=== PATIENT | female | born 1970 | race Caucasian/White ===

== ENCOUNTER 2019-10-29 09:02 | Outpatient (CLI) | payer OTHER, SELFPAY ==
--- NOTE | ~2019-10-29 | MR_ITS ---
EXAMINATION: MR knee LT wo con DATE: 10/29/2019 09:58 INDICATION: Lateral left knee burning pain TECHNIQUE: Magnetic resonance imaging (MRI) of the left knee was performed without intravenous contra st. Sequences included coronal PD-weighted FSE, coronal PD-weighted FS FSE, sagittal T2-weighted FSE , sagittal PD-weighted FS FSE and axial PD weighted fat saturated FSE. COMPARISON: Left knee radiographs dated 08/31/2017 FINDINGS: Medial compartment: Longitudinal tear in the peripheral third of the body and medial side of the posterior horn which beg ins with vertical orientation at the body and transitioning to an oblique configuration at the chief executive officer ior horn. Shallow chondral fissure along the articular portion of the intercondylar eminence. Articul ar cartilage is otherwise normal. Lateral compartment: Lateral meniscus is normal. Small region of deep chondral fissuring without degenerative subchondral changes at the posterior aspect of the lateral tibial plateau at the level of the free edge of the po sterior horn of the meniscus. Patellofemoral compartment: Deep chondral fissuring with subtle underlying cortical defect and subarticular edema at the central aspect of the medial trochlea. Remainder of the patellofemoral cartilage is normal. Ligaments and tendons: Anterior and posterior cruciate ligaments are normal. The medial collateral ligament and fibular mone ateral ligament complex are normal. The extensor mechanism is normal. The visualized medial and later al hamstring tendons as well as the iliotibial band are normal. Fluid: Physiologic amount of fluid in the joint space. No loose osteochondral bodies identified. Osseous/other: Bone alignment is normal. No fracture or pathologic marrow replacing process. IMPRESSION: 1. Longitudinal tear at the body and posterior horn of the medial meniscus. 2. Mild tricompartmental osteoarthritis with regions of moderate grade chondromalacia in the medial a nd lateral tibial plateaus and high-grade chondral malacia at the medial trochlea. Reviewed, dictated and finalized at location B. IMPRESSION: 1. Longitudinal tear at the body and posterior horn of the medial meniscus. 2. Mild tricompartmental osteoarthritis with regions of moderate grade chondrom alacia in the medial and lateral tibial plateaus and high-grade chondral malaci a at the medial trochlea.
== END 2019-10-29 09:03 ==
PROVIDERS: PCP Family Medicine; Visit Provider Orthopaedic Surgery
DX: M25.562 Pain in left knee (principal); G89.29 Other chronic pain; S83.242A Other tear of medial meniscus, current injury, left knee, initial encounter; M17.12 Unilateral primary osteoarthritis, left knee; M94.262 Chondromalacia, left knee
CPT/HCPCS: 73721

== ENCOUNTER 2020-01-10 08:01 | Outpatient (CLI) | payer OTHER, SELFPAY ==
--- NOTE | ~2020-01-10 | DEXA_ITS ---
Bone Density Report Name: Lyly Rajput Age: 49 Sex: Female Ethnicity: White Date of : 1970 Indication: history of glucocorticoids; asthma or emphysema; Referring Provider: PHYSICIAN NOT ON STAFF Study: Bone densitometry was performed. Exam Date: January 10, 2020 Accession number: [id number] Bone Density: Region BMD T-score Z-score Classification AP Spine (L1-L4) 0.819 -2.1 -1.4 Osteopenia Femoral Neck (Left) 0.652 -1.8 -1.1 Osteopenia Total Hip (Left) 0.770 -1.4 -1.0 Osteopenia Total Hip Bilateral Avg 0.772 -1.4 -1.0 Osteopenia Femoral Neck (Right) 0.651 -1.8 -1.1 Osteopenia Total Hip (Right) 0.773 -1.4 -1.0 Osteopenia World Health Organization criteria for BMD impression classify patients as: Normal (T-score at or above -1.0), Osteopenia (T-score between -1.0 and -2.5), or Osteoporosis (T-score at or below -2.5). 10-year Fracture Risk: FRAX not reported because: Premenopausal woman Clinical Information Provided by Patient: Has taken Glucocorticoids Has the following medical conditions: Asthma or Emphysema Patient maximum height was 64 No regular weight bearing exercise Onset of menses at age 13 Premenopausal Number of children 2 Missed period for more than 6 months in a row Impression: The patient's bone mass is within expected range for age, gender and ethnicity. The patient has risk factors, including: history of glucocorticoid therapy. Discussion: BONE DENSITY IS WITHIN EXPECTED LIMITS FOR AGE, SEX AND RACE. Bone density is within expected limits for age, sex and race at all sites measured. The patient should follow a healthful lifestyle (good nutrition with adequate calcium and vitamin D, and appropriate weight-bearing exercise). Follow-Up: Consider repeating this study in 2 to 3 years to reassess this patient's status, or sooner if there is some new clinical indication. Reported by: [facility] on 01/10/2020 8:32:00 AM. Reviewed, dictated and finalized at location [facility]
== END 2020-01-10 08:02 | disposition home or self-care (01) ==
PROVIDERS: PCP Family Medicine
DX: K74.3 Primary biliary cirrhosis (principal); Z79.899 Other long term (current) drug therapy; K21.9 Gastro-esophageal reflux disease without esophagitis; M85.88 Other specified disorders of bone density and structure, other site; M85.852 Other specified disorders of bone density and structure, left thigh; M85.851 Other specified disorders of bone density and structure, right thigh
CPT/HCPCS: 77080

== ENCOUNTER → 2020-10-02 15:22 | Outpatient (CLI) | payer OTHER, SELFPAY ==
--- NOTE | ~2020-10-02 | CT_ITS ---
EXAMINATION: CT abdomen pelvis w con DATE: 10/02/2020 15:47 INDICATION: Left upper quadrant abdominal pain, nausea. TECHNIQUE: Computed tomography (CT) of the abdomen and pelvis was performed with 100 cc Omnipaque 350 intravenous contrast. Automated exposure control and iterative reconstruction technique were employe d. Exam dose: 747.12 mGy-cm total exam DLP. COMPARISON: 08/31/2017 CT abdomen pelvis FINDINGS: The lung bases are clear. Normal heart size. No pericardial or pleural effusion. Status post cholecystectomy. No bile duct or pancreatic duct dilatation. No hepatic, splenic, pancrea tic, and adrenal or renal space-occupying mass lesion is detected. No urinary tract calculus or hydroureteronephrosis. The urinary bladder is unremarkable. An IUD withi n the uterus. The uterus and adnexal areas are otherwise unremarkable. Normal caliber of the abdominal aorta. No intraperitoneal or retroperitoneal or pelvic mass lesion or lymphadenopathy or ascites. Small sliding hiatal hernia. No evidence of appendicitis. No bowel obstruction, bowel wall thickening , pneumatosis or intraperitoneal free air. Small fat-containing umbilical hernia. Included skeletal structures are unremarkable. IMPRESSION: No acute finding or significant change since 1970 Reviewed, dictated and finalized at Location A. Reviewed, dictated and finalized at location B.
== END ==
PROVIDERS: PCP Family Medicine; Visit Provider Family Medicine
DX: R10.12 Left upper quadrant pain (principal)
CPT/HCPCS: 74177; Q9967

== ENCOUNTER → 2021-02-15 10:30 | Outpatient (CLI) | payer OTHER, SELFPAY ==
--- NOTE | ~2021-02-15 | XR_ITS ---
EXAMINATION: XR knee LT 2V EXAM DATE: 02/15/2021 11:19 INDICATION: Pain in left leg. TECHNIQUE: Frontal and lateral projections of the left knee. Correlation is made to left tibia fibul a exam same date. FINDINGS: No left knee joint effusion. Mild medial tibiofemoral compartment primary osteoarthritis. There are no acute fractures or dislocations identified. There is no subcutaneous gas. The soft tis temo is unremarkable. There are no radiopaque foreign bodies. IMPRESSION: Mild left medial tibiofemoral compartment osteoarthritis. Reviewed, dictated and finalized at location B. 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
--- NOTE | ~2021-02-15 | XR_ITS ---
EXAMINATION: XR tibia fibula LT 2V EXAM DATE: 02/15/2021 11:18 INDICATION: Pain in left leg. TECHNIQUE: Left tibia/fibula frontal and lateral projections obtained and reviewed. There is no prio r study for comparison. FINDINGS: Left tibial and fibular shafts unremarkable. No periosteal reaction or band of sclerosis to suggest subacute stress fracture. There are no acute fractures or dislocations identified. There is no subcutaneous gas. The soft tissue is unremarkable. There are no radiopaque foreign bodies. IMPRESSION: 1. Unremarkable XR tibia fibula LT 2V exam. Reviewed, dictated and finalized at location B. 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
== END ==
PROVIDERS: PCP Family Medicine
DX: M17.12 Unilateral primary osteoarthritis, left knee (principal)
CPT/HCPCS: 73560; 73590

== ENCOUNTER → 2021-02-28 09:35 | Outpatient (CLI) | payer OTHER, SELFPAY ==
--- NOTE | ~2021-02-28 | XR_ITS ---
EXAMINATION: XR chest 2V DATE: 02/28/2021 10:05 INDICATION: Moderate persistent asthma. TECHNIQUE: Frontal and lateral views of the chest were obtained. COMPARISON: CT abdomen and pelvis 10/02/2020 FINDINGS: The chest demonstrates clear lungs without pneumonia, pleural effusion, or pneumothorax. Th e heart size is normal. Surgical clips in the right upper quadrant are likely from cholecystectomy. IMPRESSION: 1. No acute cardiopulmonary disease. Reviewed, dictated and finalized at location B. 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
== END ==
DX: J45.40 Moderate persistent asthma, uncomplicated (principal)
CPT/HCPCS: 71046

== ENCOUNTER → 2021-09-26 15:47 | Outpatient (CLI) | payer OTHER, SELFPAY ==
--- NOTE | ~2021-09-26 | XR_ITS ---
XR lumbar spine 6V w bending 09/26/2021 16:45 Indication: Cervicalgia and low back pain Procedure: 7 views of the lumbar spine including flexion/extension Comparison: No prior studies for comparison. Findings: Lumbar vertebral body heights are maintained. No significant disc narrowing. No significant alteration of alignment with flexion/extension. There is facet hypertrophy at L5-S1. No spondylolist hesis. There is an IUD in the pelvis. Impression: 1: Mild lumbar spondylosis. Reviewed, dictated and finalized at location A. Impression: 1: Mild lumbar spondylosis.
--- NOTE | ~2021-09-26 | XR_ITS ---
XR cervical spine min 6V DATE: 09/26/2021 16:45 INDICATION: Neck pain TECHNIQUE: Standing AP, lateral, open-mouth and flexion and extension lateral views COMPARISON: None FINDINGS: There is straightening of the cervical spine. C1 and C2 are normally aligned and the odontoid process is intact. No fracture or dislocation or lock ed facet or prevertebral soft tissue swelling is detected. There is approximately 1 mm anterolisthesis at C3-4 in neutral, increasing to approximately 2 mm in f lexion, reduced in extension. There is approximately 1 mm anterolisthesis at C4-5 in flexion, with approximately 1 mm retrolisthesi s at C4-5 and extension. There is approximately 1-1.5 mm retrolisthesis at C5-C6 in neutral and extension, reduced in flexion. Moderately prominent degenerative disc disease C5-6 and C6-7, with prominent posterior spurring at C5 -6. Uncovertebral joint spurring is noted, particularly at C5-6 and C6-7. IMPRESSION: Cervical spondylosis Reviewed, dictated and finalized at location B. IMPRESSION: Cervical spondylosis
== END ==
PROVIDERS: PCP Family Medicine; Visit Provider Family Medicine
DX: M47.896 Other spondylosis, lumbar region (principal); M47.892 Other spondylosis, cervical region
CPT/HCPCS: 72052; 72114

== ENCOUNTER → 2021-11-27 14:47 | Outpatient (CLI) | payer OTHER, SELFPAY ==
--- NOTE | ~2021-11-27 | DEXA_ITS ---
Bone Density Report Name: MARILOU COX Age: 50 Sex: Female Ethnicity: White Date of : 1970 Indication: osteopenia; height loss; asthma or emphysema; Referring Provider: WENDY CORDERO Study: Bone densitometry was performed. Exam Date: November 27, 2021 Accession number: [id number] Bone Density: Region BMD T-score Z-score Classification AP Spine (L1-L4) 0.797 -2.3 -1.5 Osteopenia Femoral Neck (Left) 0.661 -1.7 -0.9 Osteopenia Total Hip (Left) 0.780 -1.3 -0.8 Osteopenia Femoral Neck (Right) 0.631 -2.0 -1.2 Osteopenia Total Hip (Right) 0.720 -1.8 -1.3 Osteopenia Total Hip Mean 0.750 -1.6 -1.1 Osteopenia World Health Organization criteria for BMD impression classify patients as: Normal (T-score at or above -1.0), Osteopenia (T-score between -1.0 and -2.5), or Osteoporosis (T-score at or below -2.5). 10-year Fracture Risk(1): Major Osteoporotic Fracture 5.2% Hip Fracture 0.6% Reported Risk Factors: [place] (), Neck BMD=0.631, BMI=36.6 (1) FRAX(R) Version 3.08. Fracture probability calculated for an untreated patient. Fracture probability may be lower if the patient has received treatment. Previous Exams: Region Exam Age BMD T-score BMD Change BMD Change Date g/cm2 vs Baseline vs Previous AP Spine(L1-L4) 11/27/2021 50 0.797 -2.3 -0.086 -0.086 09/06/2016 45 0.883 -1.5 Total Hip(Left) 11/27/2021 50 0.780 -1.3 -0.062 -0.062 09/06/2016 45 0.842 -0.8 Total Hip(Right) 11/27/2021 50 0.720 -1.8 -0.046 -0.046 09/06/2016 45 0.766 -1.4 *Denotes significance at 95% confidence level, LSC for AP Spine = 0.022 g/cm2, LSC for Total Hip = 0.027 g/cm2 Clinical Information Provided by Patient: Has used the following medications: Vitamin D, Calcium Has the following medical conditions: Asthma or Emphysema Patient maximum height was 64 No regular weight bearing exercise Onset of menses at age 13 Number of children 2 Missed period for more than 6 months in a row Impression: The patient has low bone mass, based on the Total Spine T-score. The patient has an estimated ten-year risk of hip fracture of 0.6% and an estimated ten-year risk of major fracture of 5.2%, based on the WHO FRAX algorithm. No significant bone loss was observed. Discussion: BONE DENSITY IS LOW AT ONE OR MORE SKELETAL SITES. This patient's lowest T-score is low at one or more skeletal sites. It meets the W
== END ==
PROVIDERS: PCP Family Medicine
DX: K74.3 Primary biliary cirrhosis (principal); M85.88 Other specified disorders of bone density and structure, other site; M85.852 Other specified disorders of bone density and structure, left thigh; M85.851 Other specified disorders of bone density and structure, right thigh
CPT/HCPCS: 77080

== ENCOUNTER 2021-12-05 16:57 | Outpatient (CLI) | payer OTHER, SELFPAY ==
[2021-12-05 17:14] LABS: Hematocrit 39.4 % (37.0-47.0); Hemoglobin 12.6 g/dL (12.0-15.0)
[2021-12-05 17:19] LABS: Prothrombin Time 12.6 Seconds (11.1-14.7)
[2021-12-05 17:20] LABS: Anion Gap 10 mmol/L (8-16); Blood Urea Nitrogen 11 mg/dL (7-17); Calcium 9.1 mg/dL (8.4-10.2); Carbon Dioxide 27 mmol/L (22-30); Chloride 102 mmol/L (98-107); Estimated Glomerular Filt Rate > 60; Glucose 90 mg/dL (65-110); Partial Thromboplastin Time 35.2 SECONDS (22.3-36.8); Sodium 139 mmol/L (137-145)
== END 2021-12-05 16:58 | disposition home or self-care (01) ==
LOC: ANHLAB 16:58
PROVIDERS: PCP Family Medicine; Visit Provider Anesthesiology
DX: K74.3 Primary biliary cirrhosis (principal); D64.9 Anemia, unspecified; Z01.818 Encounter for other preprocedural examination
CPT/HCPCS: 36415; 80048; 85014; 85018; 85610; 85730

== ENCOUNTER 2021-12-13 01:09 | Day surgery (SDC) | payer OTHER, SELFPAY ==
[2021-12-03 12:39] VITALS: BMI 33.3
--- NOTE | 2021-12-03 12:48 | PC.NURSE ---
Report to the Outpatient Waiting Room, entrance under the green pavilion located off [facility], at time __08:00am on date __12/13/21 . OR Time: __10:00am . Time changes happen often and if your time is changed the preop area will call you the afternoon before. - You and your visitor will be asked to self-screen and do not enter if you have any COVID symptoms. - Only one visitor and NO children visitors are allowed at this time. - The patient visitor is requested to leave or wait in car when not with patient due to restrictions. - A mask is required within the hospital. Patients may have clear liquids (water, carbonated beverages, clear teas, apple juice) until 3 hours prior to surgery with a maximum of 20 ounces. - No food from midnight until time of surgery - NOTHING TO DRINK AFTER 07:00AM Take the following medications with a SIP of water the morning of surgery: __LORAZEPAM, INHALERS Medications to discontinue per physician VITAMINS Date to take last cgei____[id number] Please no make-up, nail turkish, hairspray, perfume, deodorant, or body powder the day of surgery. No jewelry (including any body piercings) or valuables the day of surgery, leave them at home. Please take a shower or bath the night before, or the morning of, surgery with an antibacterial soap. Wear comfortable, loose fitting clothing. - Jewelry must be removed prior to entering the operating room. Rings and piercings that are not removed may be cut off. - The hospital will not accept responsibility for valuables. - Please leave all valuables, including medications, at home the day of surgery. If you are going home after surgery, a licensed local tanker truck driver must drive you home. - NO public transportation without another adult. - We recommend that an adult stay with you for 24 hours following discharge. - We also recommend that you do not drive, make important decision, drink alcoholic beverages, or take any drugs that were not prescribed by your health care provider for at least 24 hours after your discharge time. Follow any additional instructions given to you from your surgeon. If you or anyone in your household have experienced Covid symptoms in the past week, please notify your surgeon or the nurse liaison at the phone number below for possible testing. Telephone instructions given to __PATIENT__and asked if any additional questions and then verbalized understanding. Patient advised to call surgeon office or pre surgery nurse liaison [phone] if any additional questions.
[2021-12-13] VITALS (8 sets, daily range): BP systolic 105–133; BP diastolic 61–86; PULSE 64–78; RESP 10–16; TEMP 36.6–36.7; O2SAT 93–100
--- NOTE | ~2021-12-13 | XR_ITS ---
EXAMINATION: XR surgery orthopedic DATE: 12/13/2021 10:58 INDICATION: Right foot first metatarsal arthrodesis TECHNIQUE: 2 fluoroscopic images of the right forefoot were obtained during procedure performed by Dr Yessica Charles. Radiologist was not present for the imaging or procedure. The amount of fluoroscopy time used during this procedure was 0.1 minutes. COMPARISON: None. FINDINGS: First metatarsophalangeal arthrodesis with dorsal plate and screw fixation. There is an associated bu nionectomy with linear osteotomy margin along the medial head of the first metatarsal. Alignment is n ear-anatomic. No fractures identified. Mild osteoarthritis at the second and third tarsal metatarsal joints. IMPRESSION: 1. Expected appearance post bunionectomy and internally fixed first metatarsophalangeal arthrodesis. Reviewed, dictated and finalized at location B. IMPRESSION: 1. Expected appearance post bunionectomy and internally fixed first metatarsoph alangeal arthrodesis.
--- NOTE | 2021-12-13 07:19 | WPDHPUPDATE1 ---
History and Physical Update Update Date/Time: 12/13/21 07:19 History and Physical has been reviewed, including an updated exam of the patient. There are NO changes in the patient's condition. Risks, benefits, and alternatives have been discussed and questions answered. Patient agrees to proceed with procedure.
--- NOTE | 2021-12-13 08:52 | WPDANESEPPF ---
Anes - Initial Pre Proc Eval Procedure: Operation Date: 12/13/21 10:00 Proposed Procedures p Arthrodesis of First Metatarsal Phalangeal Joint Right Foot - Mariusz Charles JR, MD Date/Time: 12/13/21 08:52 Surgeon: Mariusz Charles JR, MD Pre Op Diagnosis: arthritic bunion right foot Patient Data Age: 51 Gender: F Height: 1.63 m Weight: 88 kg Allergies Allergy/AdvReac Type Severity Reaction Status Date / Time tetracycline Allergy Intermediate Hives Verified 12/13/21 08:23 Home Medications Medication Instructions Recorded Confirmed Type albuterol sulfate 90 mcg/actuation 1 inh inhalation PRN PRN Shortness 12/03/21 12/13/21 History aerosol inhaler Of Breath calcium carb-ergocalciferol (vit 1 tablet PO DAILY 12/03/21 12/13/21 History D2) 600 mg calcium-200 unit tablet cetirizine 10 mg tablet (Zyrtec) 10 mg PO DAILY 12/03/21 12/13/21 History dexlansoprazole 60 mg 60 mg PO DAILY 12/03/21 12/13/21 History capsule,biphase delayed release ferrous sulfate 325 mg (65 mg 325 mg PO DAILY 12/03/21 12/13/21 History iron) tablet fluticasone 250 mcg-salmeterol 50 1 ea inhalation DAILY 12/03/21 12/13/21 History mcg/dose blistr powdr for inhalation (Advair Diskus) lorazepam 1 mg tablet 1 mg PO PRN PRN Anxiety 12/03/21 12/13/21 History nortriptyline 50 mg capsule 50 mg PO HS 12/03/21 12/13/21 History ondansetron HCl 4 mg tablet 4 mg PO PRN PRN Nausea 12/03/21 12/03/21 History ursodiol 300 mg capsule 300 mg PO TID 12/03/21 12/13/21 History Patient hx anesthesia problems: none Family hx anesthesia problems: none Results Review: All pre-operative results and documents have been reviewed as part of the pre-operative evaluation. [facility] Past Medical History Medical History (Updated 12/13/21 @ 08:53 by Dov Reis MD) Asthma Obesity Surgical History Surgical History (Updated 12/13/21 @ 08:53 by Dov Reis MD) H/O arthroscopic knee surgery Social History Social History Smoking status: Never smoker Second hand tobacco smoke exposure: No Alcohol intake: never Substance use: never Substance use type: does not use Living arrangements: with family Spiritual care concerns: No Anes - Eval Final PreProcedure Day of Procedure 12/13/21 08:52 Patient weight: obese Heart: regular rate and rhythm Lungs: clear to auscultation Airway: Mallampati scale class II Neurological: alert and oriented Last oral intake: >/= 8 hours ASA classification: II Emergent: no Anesthetic plan: proceed Anesthesia type and monitoring: general LMA and standard monitoring Results Review: All pre-operative results and documents have been reviewed as part of the pre-operative evaluation. Informed Consent: The patient's anesthetic plan and its attendant risks and benefits were discussed with the patient/family/POA. Questions were solicited and answers provided to the satisfaction of the patient/family/POA.
[2021-12-13] MEDS: LACTATED RINGERS 1,000 ML 30 ML IV CONT ×2 (09:18→11:13)
--- NOTE | 2021-12-13 09:45 | WPDANESPNB ---
Anes - Peripheral Nerve Block Date/Time: 12/13/21 09:45 I have discussed with the patient/family/POA the placement of a peripheral nerve block for post-operative pain management, including associated risks, benefits, complications, and side effects. Alternative methods of post-operative analgesia were detailed. Questions were solicited and answers provided to the satisfaction of the patient/family/POA. Time-Out: A pre-procedural Time-Out was completed immediately before starting the procedure and confirmed: Patient Identification, Site, Procedure, Patient Position and the Availability of Requisite Equipment. Clinical Indications: Acute post-operative pain management requested by the operative surgeon. Nerve Block Insertion Note Anes-nerve block: posterior fossa sciatic right and other (saphenous) Patient position: supine Skin prep: chlorhexidine Needle: 22 gauge, stimulating, insulated echogenic needle. Needle length: 120 mm Technique: nerve stimulation lost at (mA) (0.3) Injectate: bupivacaine 0.5% with epi 5 mcg/ml (no epi, 30cc politeal, 10cc saphenous) Procedure start time:: 939 Procedure end time:: 945
[2021-12-13] MEDS: ceFAZolin 2 GM/D5W 50 ML 2 GM/50 ML BAG IVPB (10:03)
--- NOTE | 2021-12-13 11:22 | W.PM.PROC2 ---
Procedure Note - Detailed Date of Procedure 12/13/21 Pre-op Diagnosis Arthritic bunion right foot Post-op Diagnosis Same Procedure Performed Arthrodesis of the first metatarsal phalangeal joint right foot Surgeon Mariusz Charles JR, [facility] Anesthesia General and Regional Indications Painful first metatarsal phalangeal joint right foot Description of Procedure PROCEDURE IN DETAIL: Under mild sedation, the patient was brought into the operating room, placed on the operating table in supine position. A pneumatic ankle tourniquet was placed about the patient's ipsilateral ankle. Following general LMA, a regional nerve block was obtained about the foot and ankle. The foot was then scrubbed, prepped, and draped in the usual aseptic manner. An Esmarch bandage was then used to exsanguinate the patient's foot and the pneumatic ankle tourniquet was then inflated. Surgery began in the following manner: Attention was directed to the dorsal aspect of the 1st metatarsophalangeal joint where there was a large subcutaneous prominence noted along the dorsomedial aspect of the joint. The incision was made starting along the central shaft of the 1st metatarsal and extending just proximal to the interphalangeal joint of the hallux. The incision was continued deep down through the subcutaneous tissues using sharp and blunt dissection. All bleeders were cauterized as necessary. At this point, the dissection was continued down to the level of the periosteum and capsular structures overlying the 1st metatarsophalangeal joint. A full length periosteum and capsular incision was made just medial to the extensor hallucis longus tendon. The periosteum and capsular structures were freed from the base of the proximal phalanx as well as the distal 1st metatarsal. At this point, the 1st metatarsophalangeal joint was identified. There was significant loss of articular cartilage to the head of the 1st metatarsal as well as the base of the proximal phalanx. There was significant broadening and hypertrophy of the 1st metatarsophalangeal joint. Utilizing a sagittal bone saw, the hypertrophied 1st metatarsal was resected dorsally, medially, and laterally. A power bur was used to make sure that there were no rough edges and also to further d?bride the hypertrophic 1st metatarsal. Next, a rongeur was used to resect all hypertrophic base of the proximal phalanx. At this point, the reamer system for the [employer] CrossCHECK system was used to denude the degenerative cartilage from the head of the 1st metatarsal as well as the base of the proximal phalanx. The cartilage and subchondral bone were fully debrided utilizing the reamer system until healthy bleeding bone was noted. Next, a 2-0 drill bit was used to further fenestrate the head of the 1st metatarsal as well as the base of the proximal phalanx in order to allow fusion across the 1st metatarsophalangeal joint. Next, a 0.045 inch K-wire was driven from the medial aspect of the base of the proximal phalanx into the head of the 1st metatarsal in order to serve as temporary fixation. A large steel plate was used to make sure that the hallux was in a rectus position both in the sagittal plane as well as the frontal and transverse plane. Excellent position of the hallux was noted. Next, a CrossCHECK plate was placed atop the 1st metatarsophalangeal joint held in position with [place] wires. Utilizing standard principles and techniques, the 2 distal drill holes were drilled and two 2.7mm mm fully-threaded locking screws were driven from dorsal to plantar holding the distal aspect of the plate intact. At this point, a 3.5mm lag screw was driven from dorsal distal to proximal plantar across the 1st metatarsophalangeal joint through the plate system with excellent compression noted after careful removal of the olive wire and temporary fixation from the 1st metatarsophalangeal joint. Next, 2 proximal drill holes were drilled
[2021-12-13] MEDS: ONDANSETRON HCL ODT 4 MG TABLET PO (13:09)
== END 2021-12-13 13:10 | disposition home or self-care (01) ==
PROVIDERS: PCP Family Medicine; Visit Provider Podiatrist Foot & Ankle Surgery
PROC: (CPT 28750; principal; 2021-12-13 10:00)
DX: M21.611 Bunion of right foot (principal); G89.18 Other acute postprocedural pain; Z79.51 Long term (current) use of inhaled steroids; J45.909 Unspecified asthma, uncomplicated; E66.9 Obesity, unspecified; Z68.34 Body mass index [BMI] 34.0-34.9, adult
CPT/HCPCS: 28750; 64450; 64445; 36415; 80048; 85014; 85018; 85610; 85730; 99199; A9270; C1713; J0690; J1100; J2250; J2405; J2704; J3010; J7120

== ENCOUNTER 2024-05-14 10:57 | Outpatient (CLI) | payer BC, SELFPAY ==
--- NOTE | ~2024-05-14 | XR_ITS ---
AP view of the pelvis and AP and lateral views of the bilateral hips Clinical history: Pain Findings: No acute fracture or dislocation is seen. Osseous alignment is anatomic. Bilateral hip and SI joint spaces are preserved. Soft tissues are unremarkable. IUD present. Impression: No significant abnormality is seen. Reviewed, dictated and finalized at [facility]. Impression: No significant abnormality is seen.
--- NOTE | ~2024-05-14 | XR_ITS ---
Lumbosacral Spine: AP and lateral views Clinical History: Pain Findings: The normal lordotic curve is maintained. The vertebral bodies and posterior elements are i ntact. The intervertebral disc spaces are preserved. There is moderate to advanced facet arthropathy , especially at L4-L5 and L5-S1. The sacroiliac joints are normally outlined. Impression: Extensive facet arthropathy, as above. Reviewed, dictated and finalized at location [facility]. Impression: Extensive facet arthropathy, as above.
== END 2024-05-14 10:58 | disposition home or self-care (01) ==
PROVIDERS: PCP Family Medicine; Visit Provider Internal Medicine Rheumatology
DX: R76.8 Other specified abnormal immunological findings in serum (principal); M25.552 Pain in left hip; M54.50 Low back pain, unspecified; M25.551 Pain in right hip; R53.83 Other fatigue; M79.10 Myalgia, unspecified site; K74.3 Primary biliary cirrhosis; K76.0 Fatty (change of) liver, not elsewhere classified
CPT/HCPCS: 72100; 73521

== ENCOUNTER 2025-01-12 15:33 | Outpatient (CLI) | payer BC, SELFPAY ==
--- NOTE | ~2025-01-12 | DEXA_ITS ---
Bone Density Report Name: MARILOU COX Age: 54 Sex: Female Ethnicity: White Date of : 1970 Indication: osteopenia; height loss; asthma or emphysema; Referring Provider: ANURADHA, LAMONT Study: Bone densitometry was performed. Exam Date: January 12, 2025 Accession number: [id number] Bone Density: Region BMD T-score Z-score Classification AP Spine(L1-L4) 0.723 -2.9 -1.9 Osteoporosis Femoral Neck (Left) 0.612 -2.1 -1.1 Osteopenia Total Hip (Left) 0.726 -1.8 -1.1 Osteopenia Femoral Neck (Right) 0.574 -2.5 -1.5 Osteoporosis Total Hip (Right) 0.672 -2.2 -1.6 Osteopenia Total Hip Mean 0.699 -2.0 -1.4 Osteopenia World Health Organization criteria for BMD impression classify patients as: Normal (T-score at or above -1.0), Osteopenia (T-score between -1.0 and -2.5), or Osteoporosis (T-score at or below -2.5). 10-year Fracture Risk: FRAX not reported because: Some T-score for Spine Total or Hip Total or Femoral Neck at or below -2.5 Previous Exams: -- Region Exam Age BMD T-score BMD Change BMD Change Date g/cm2 vs Baseline vs Previous -- AP Spine (L1-L4) 01/12/2025 54 0.723 -2.9 -18.1%# -9.3%* 11/27/2021 50 0.797 -2.3 -9.7%# -9.7%# 09/06/2016 45 0.883 -1.5 Total Hip(Left) 01/12/2025 54 0.726 -1.8 -13.8%* -6.9%# 11/27/2021 50 0.780 -1.3 -7.4%# -7.4%# 09/06/2016 45 0.842 -0.8 Total Hip(Right) 01/12/2025 54 0.672 -2.2 -12.3%* -6.6%# 11/27/2021 50 0.720 -1.8 -6.0%# -6.0%# 09/06/2016 45 0.766 -1.4 -- *Denotes significance at 95% confidence level, LSC for AP Spine = 0.022 g/cm2, LSC for Total Hip = 0.027 g/cm2 # Denotes dissimilar scan types or analysis methods Clinical Information Provided by Patient: Has used the following medications: Vitamin D, Calcium Has the following medical conditions: Asthma or Emphysema Patient maximum height was 64 Menopause Age: 52 Onset of menses at age 13 Number of children 2 Missed period for more than 6 months in a row Impression: The patient has osteoporosis, based on the Total Spine T-score. The BMD for the AP Spine (L1-L4) decreased, changing by -9.3% since the last DXA exam. Discussion: INCREASED RISK OF FRACTURE. BONE DENSITY IS UNDESIRABLY LOW AT ONE OR MORE SKELETAL SITES, CONSISTENT WITH POSTMENOPAUSAL OSTEOPOROSIS. This patient's lowest T-score meets the World Health Organization's (WHO) criteria for osteoporosis at one or more sites (T-score -2.5 or below). In untreated patients, the risk of osteoporotic fracture increases approximately two-fold for each 1.0 SD decrease in T-score. Low bone density is not the only risk factor for fracture; also consider factors such as patient's age, frailty or poor health, risk of falling, risk of injury, previous osteoporotic fracture, family history of osteoporosis, cigarette smoking, low body weight, etc. Not everyone with low bone mineral density has osteoporosis; osteomalacia and other metabolic bone disorders should also be considered. Patients who have osteoporosis should be evaluated for specific diseases and conditions (secondary causes) that may cause or contribute to bone loss. The [place] [employer] (AACE) and National Osteoporosis Foundation (NOF) recommend pharmacologic intervention for all postmenopausal women whose T-score is in this range. The patient should follow a healthful lifestyle (good nutrition with adequate calcium and vitamin D, and appropriate weight-bearing exercise). Follow-Up: Consider a repeat BMD and Vertebral Fracture Assessment (VFA) exam in 2 years or sooner if medically necessary, to reassess this patient's status. Reported by: CELSO on 01/12/2025 3:55:00 PM. Reviewed, dictated and finalized at location [facility].
== END 2025-01-12 15:34 | disposition home or self-care (01) ==
LOC: MICIMG 15:33
PROVIDERS: PCP Family Medicine; Visit Provider Family Medicine
DX: Z78.0 Asymptomatic menopausal state (principal); M81.0 Age-related osteoporosis without current pathological fracture; M85.852 Other specified disorders of bone density and structure, left thigh; M85.851 Other specified disorders of bone density and structure, right thigh
CPT/HCPCS: 77080